=== PATIENT | male | born 1975 | race Caucasian/White ===

== ENCOUNTER 2017-03-27 05:35 | Emergency (ER) | payer OTHER ==
[2017-03-27 06:50] LABS: Basophils % (Auto) 0.5 % (0.0-1.8); Eosinophils % (Auto) 0.2 % (0.0-4.3); Hematocrit 49.5 % (35.5-45.6); Hemoglobin 16.2 gm/dl (11.8-15.2); Mean Corpuscular HGB Conc 33 % (32-34); Mean Corpuscular Hemoglobin 30 pg (28-32); Mean Corpuscular Volume 91 fl (84-94); Platelet Count 347 K/mm3 (140-440); Red Blood Count 5.42 M/mm3 (3.65-5.03); Red Cell Distribution Width 14.5 % (13.2-15.2); White Blood Count 18.1 K/mm3 (4.5-11.0)
[2017-03-27 06:51] LABS: Anion Gap 23 mmol/L; Blood Urea Nitrogen 9 mg/dL (9-20); Calcium 8.9 mg/dL (8.4-10.2); Carbon Dioxide 24 mmol/L (22-30); Chloride 93.1 mmol/L (98-107); Glucose 118 mg/dL (75-100); Potassium 4.1 mmol/L (3.6-5.0); Sodium 136 mmol/L (137-145)
[2017-03-27 08:27] LABS: Urine Drugs of Abuse Note Disclamer
[2017-03-27 09:03] LABS: Bilirubin,Urine NEG (Negative); Blood,Urine NEG (Negative); Ketones,Urine NEG (Negative); Leukocyte Esterase,Urine NEG (Negative); Nitrite,Urine NEG (Negative); Protein,Urine <15 mg/dL mg/dL (Negative); Urobilinogen,Urine < 2.0 mg/dL (<2.0); WBC,Urine < 1.0 /HPF (0.0-6.0)
[2017-03-27] MEDS ORDERED: NACL 0.9% 1000 ML 1,000 ML IV ONE ×2 (13:42→15:05)
[2017-03-27 14:36] LABS: Albumin/Globulin Ratio 1.1 %; Bilirubin,Direct 0.2 mg/dL (0-0.2); Bilirubin,Indirect 0.8 mg/dL; Total Protein 7.7 g/dL (6.3-8.2)
[2017-03-27] MEDS ORDERED: THERAGRAN Tab PO ONE (14:46)
[2017-03-27] MEDS ORDERED: VITAMIN B-1 100 MG in NACL 0.9% 50 ML IV ONE (14:46)
--- NOTE | 2017-03-27 15:18 | Emergency Department Report ---
HPI - General Chief Complaint: Pain General Time Seen by Provider: 03/27/17 13:43 - HPI HPI: This is a 41-year-old male who presents to the emergency department from home with the request for IV fluid resuscitation. The patient has a history of alcoholism where he has been binge drinking over the past 6 months. He was trying to stop cold turkey but ended up finding a bottle of hard liquor last night which he drank the rest, about one half of a bottle. He does not present intoxicated. However he says that there was a/occurrence in the past in which she started having some paresthesia like symptoms followed by severe muscle spasms and contractions. The patient presents today hoping to avoid this again. He denies any nausea, vomiting, fever, abdominal pain, chest pain or shortness of breath. He did start having the paresthesia-like symptoms earlier today but has not yet had any muscle cramping or pain. He has a primary care doctor but cannot remember the name currently. He denies any illicit drug use. He is a tobacco smoker. ED Past Medical Hx - Past Medical History Hx Hypertension: Yes Additional medical history: back injury - Social History Smoking Status: Current Every Day Smoker Substance Use Type: Alcohol - Medications Home Medications: Home Medications Medication Instructions Recorded Confirmed Last Taken Type Prednisone [predniSONE 10 mg 10 mg PO .TAPER #1 tab.ds.pk 03/19/15 Unknown Rx (6-Day Pack, 21 Tabs)] hydrOXYzine HCL [Atarax] 25 mg PO Q6HR PRN #20 tablet 03/19/15 Unknown Rx ED Review of Systems ROS: Stated complaint: ETOH Other details as noted in HPI Comment: All other systems reviewed and negative Constitutional: denies: chills, fever Eyes: denies: eye pain, eye discharge, vision change ENT: denies: ear pain, throat pain Respiratory: denies: cough, shortness of breath, wheezing Cardiovascular: denies: chest pain, palpitations Gastrointestinal: denies: abdominal pain, nausea, diarrhea Genitourinary: denies: urgency, dysuria Musculoskeletal: denies: back pain, joint swelling, arthralgia Skin: denies: rash, lesions Neurological: denies: headache, weakness Physical Exam - Physical Exam Vital Signs: Vital Signs 03/27/17 03/27/17 05:46 14:30 Temperature 98.1 F Pulse Rate 84 Respiratory 18 20 Rate Blood Pressure 143/83 O2 Sat by Pulse 96 Oximetry Physical Exam: GENERAL: The patient is well-developed well-nourished. HEENT: Normocephalic. Atraumatic. Extraocular motions are intact. Patient has moist mucous membranes. Pupils equal reactive to light bilaterally. NECK: Supple. Trachea is midline. CHEST/LUNGS: Clear to auscultation. There is no respiratory distress noted. HEART/CARDIOVASCULAR: Regular. There is no tachycardia. There is no gallop rub or murmur. ABDOMEN: Abdomen is soft, nontender. Patient has normal bowel sounds. There is no abdominal distention. Obese habitus. SKIN: Skin is warm and dry. NEURO: The patient is awake, alert, and oriented. The patient is cooperative. The patient has no focal neurologic deficits. The patient has normal speech. MUSCULOSKELETAL: There is no tenderness or deformity. There is no limitation range of motion. There is no evidence of acute injury. ED Course Vital Signs 03/27/17 03/27/17 05:46 14:30 Temperature 98.1 F Pulse Rate 84 Respiratory 18 20 Rate Blood Pressure 143/83 O2 Sat by Pulse 96 Oximetry ED Medical Decision Making - Lab Data Result diagrams: 03/27/17 06:14 03/27/17 06:14 - Medical Decision Making 41-year-old male presents to the emergency department for IV fluid rehydration in order to try and avoid muscle cramping and pain that he had with a previous alcohol withdrawal/detox experience. If possible, the patient would also be interested in inpatient and/or outpatient alcohol detoxification. However does not appears that the patient will meet criteria or have the insurance resources for inpatient treatment. The behavioral counselor has provided outpatient resources for the patient. His labs are mostly unremarkable. Slight elevation in LFTs but otherwise there is no signs of infection, electrolyte abnormalities , renal insufficiency, glucose abnormalities. He has no complaints of pain at this time. He was given 2 L of IV fluid, IV thiamine, and a multivitamin. Upon reevaluation is feeling improved. Critical Care Time: No Critical care attestation.: If time is entered above; I have spent that time in minutes in the direct care of this critically ill patient, excluding procedure time. ED Disposition Clinical Impression: Alcoholism /alcohol abuse, Dehydration Disposition: DC-01 TO HOME OR SELFCARE Is pt being admited?: No Condition: Stable Instructions: Dehydration (ED), Abuse of Alcohol (ED) Additional Instructions: Please follow-up with the referrals given to you for assistance with detox from alcohol. Return to the emergency department with any worsening of your symptoms or any acute distress. Referrals: PRIMARY CARE,MD [Primary Care Provider] - [facility] Days [facility] Days
[2017-03-27 18:12] VITALS: BP 154/85
== END 2017-03-27 18:18 | disposition home or self-care (01) ==
LOC: ED 05:35
DX: F10.129 Alcohol abuse with intoxication, unspecified (principal); E86.0 Dehydration; I10 Essential (primary) hypertension; F17.200 Nicotine dependence, unspecified, uncomplicated
CPT/HCPCS: 36415; 80048; 80074; 80307; 81001; 82150; 82550; 83690; 85025; 96361; 96365; 99283; G0480; J3411; J7030; 80320

== ENCOUNTER 2020-02-29 19:24 | Emergency (ER) | payer OTHER ==
[2020-02-29] MEDS ORDERED: SODIUM CHLORIDE 0.9% 1000 ML 1,000 ML IV ONE (19:41)
[2020-02-29] MEDS ORDERED: SODIUM CHLORIDE 0.9% 1000 ML 1,000 ML ONE (19:44)
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
[2020-02-29 20:18] LABS: Basophils # (Auto) 0.1 K/mm3 (0.0-0.1); Basophils % (Auto) 0.8 % (0.0-1.8); Eosinophils # (Auto) 0.1 K/mm3 (0.0-0.4); Eosinophils % (Auto) 0.9 % (0.0-4.3); Hematocrit 41.4 % (35.5-45.6); Lymphocytes # (Auto) 3.6 K/mm3 (1.2-5.4); Mean Corpuscular HGB Conc 34 % (32-34); Mean Corpuscular Volume 96 fl (84-94); Monocytes # (Auto) 0.7 K/mm3 (0.0-0.8); Monocytes % (Auto) 8.7 % (0.0-7.3); Platelet Count 275 K/mm3 (140-440); Red Blood Count 4.31 M/mm3 (3.65-5.03); Red Cell Distribution Width 16.4 % (13.2-15.2)
[2020-02-29 20:30] LABS: INR 1.08 (0.87-1.13); Partial Thromboplastin Time 26.7 Sec. (24.2-36.6)
[2020-02-29 20:41] LABS: BUN/Creatinine Ratio 12; Blood Urea Nitrogen 7 mg/dL (9-20); Calcium 8.2 mg/dL (8.4-10.2); Hemolysis Index 4
[2020-02-29 21:20] LABS: Bilirubin,Urine NEG (Negative); Blood,Urine NEG (Negative); Color,Urine Straw (Yellow); Protein,Urine <15 mg/dL mg/dL (Negative); Urobilinogen,Urine < 2.0 mg/dL (<2.0)
[2020-02-29 21:28] LABS: Amphetamine Screen,Urine PRESUMPTIVE NEGATIVE; Benzodiazepines Screen,Urine PRESUMPTIVE NEGATIVE; Cannabinoid Screen,Urine PRESUMPTIVE NEGATIVE; Cocaine Screen,Urine PRESUMPTIVE NEGATIVE; Methadone Screen,Urine PRESUMPTIVE NEGATIVE; Opiate Screen,Urine PRESUMPTIVE NEGATIVE
[2020-03-01 11:30] VITALS: BP 178/99
== END 2020-03-01 12:30 | disposition home or self-care (01) ==
LOC: ED 19:24
DX: F10.929 Alcohol use, unspecified with intoxication, unspecified (principal); R41.82 Altered mental status, unspecified; I10 Essential (primary) hypertension; F17.200 Nicotine dependence, unspecified, uncomplicated; Z88.8 Allergy status to other drugs, medicaments and biological substances
CPT/HCPCS: 36415; 80048; 80307; 81001; 83735; 85025; 85610; 85730; 96360; 99284; J7030; 80320; G0480

== ENCOUNTER 2020-03-26 12:10 | Emergency (ER) | payer SELFPAY ==
[2020-03-26] MEDS ORDERED: methylPREDNISolone Sod Succinate 125 MG/2 ML INJ IV ONE (12:22)
[2020-03-26] MEDS ORDERED: FAMOTIDINE 20 MG/2 ML INJ IV ONE (12:22)
--- NOTE | 2020-03-26 13:18 | Emergency Department Report ---
HPI - General Chief Complaint: Allergic Reaction Time Seen by Provider: 03/26/20 12:17 - HPI HPI: 44-year-old male presents to the hospital with acute allergic reaction. Started after taking several sips of valentin [place]. Patient felt like his face and body was hot followed by flushing and lip swelling. Patient took 20 of prednisone prior to arrival and received Benadryl 50 mg provided by EMS. Patient denies wheezing, throat tightness, tongue swelling, shortness of breath. He complains of generalized redness as well as pruritus. ED Past Medical Hx - Past Medical History Previous Medical History?: Yes Hx Hypertension: Yes Additional medical history: back injury - Surgical History Past Surgical History?: No - Social History Smoking Status: Current Every Day Smoker Substance Use Type: Alcohol - Medications Home Medications: Home Medications Medication Instructions Recorded Confirmed Last Taken Type Prednisone [predniSONE 10 mg 10 mg PO .TAPER #1 tab.ds.pk 03/19/15 Unknown Rx (6-Day Pack, 21 Tabs)] hydrOXYzine HCL [Atarax] 25 mg PO Q6HR PRN #20 tablet 03/19/15 Unknown Rx EPINEPHrine [Epipen] 0.3 mg IJ ONCE #1 auto.injct 03/26/20 Unknown Rx Famotidine [Pepcid] 20 mg PO BID #10 tablet 03/26/20 Unknown Rx diphenhydrAMINE [Benadryl CAP] 25 mg PO Q6HR PRN #20 capsule 03/26/20 Unknown Rx predniSONE [Deltasone] 40 mg PO QDAY 5 Days tab 03/26/20 Unknown Rx ED Review of Systems ROS: Stated complaint: ALLERGIC REACTION Other details as noted in HPI Comment: All other systems reviewed and negative Physical Exam - Physical Exam Vital Signs: Vital Signs 03/26/20 12:18 Temperature 98.3 F Pulse Rate 108 H Respiratory 18 Rate Blood Pressure 141/59 O2 Sat by Pulse 96 Oximetry Physical Exam: General: No acute distress Head: Atraumatic Eyes: normal appearance ENT: Moist mucous membranes, no posterior airway swelling or tongue swelling, no stridor Neck: Normal appearance, no midline tenderness Chest: Clear to auscultation bilaterally CV: Regular rate and rhythm Abdomen: Soft, normal bowel sounds, nontender, nondistended, no rebound or guarding Back: Normal inspection Extremity: Normal inspection, full range of motion Neuro: Alert O x 3, no facial asymmetry, speech clear, no gross motor sensory deficit Psych: Appropriate behavior Skin: Generalized flushing/erythema with pruritus ED Course Vital Signs 03/26/20 12:18 Temperature 98.3 F Pulse Rate 108 H Respiratory 18 Rate Blood Pressure 141/59 O2 Sat by Pulse 96 Oximetry - Reevaluation(s) Reevaluation #1: 03/26/20 15:21 Patient feeling much better pruritus and redness have improved ED Medical Decision Making - Medical Decision Making Patient treated in the ED with Solu-Medrol Pepcid and was observed for several hours Patient symptoms improved and he is asymptomatic. Be discharged with medications for acute allergic reaction at home Critical Care Time: No Critical care attestation.: If time is entered above; I have spent that time in minutes in the direct care of this critically ill patient, excluding procedure time. ED Disposition Clinical Impression: Acute allergic reaction Disposition: DC-01 TO HOME OR SELFCARE Is pt being admited?: No Does the pt Need Aspirin: No Condition: Stable Instructions: Allergies (ED) Additional Instructions: Take the medication as prescribed. Follow-up with your doctor or doctor/clinic provided. Return if symptoms worsen as indicated by your discharge instructions. Prescriptions: diphenhydrAMINE [Benadryl CAP] 25 mg PO Q6HR PRN #20 capsule PRN Reason: Allergic Reaction predniSONE [Deltasone] 40 mg PO QDAY 5 Days tab EPINEPHrine [Epipen] 0.3 mg IJ ONCE #1 auto.injct Famotidine [Pepcid] 20 mg PO BID #10 tablet Referrals: LETTY PETTY MD [Staff Physician] - 3-5 Days Time of Disposition: 15:23
[2020-03-26 16:10] VITALS: BP 156/91
== END 2020-03-26 16:11 | disposition home or self-care (01) ==
LOC: ED 12:10
DX: T78.40XA Allergy, unspecified, initial encounter (principal); F17.200 Nicotine dependence, unspecified, uncomplicated; I10 Essential (primary) hypertension; Z79.899 Other long term (current) drug therapy; Z88.8 Allergy status to other drugs, medicaments and biological substances
CPT/HCPCS: 96374; 96375; 99284; J2930